=== PATIENT | female | born 1955 | race Caucasian/White ===

== ENCOUNTER 2018-09-23 19:46 | Inpatient (IN) | payer MEDICARE ==
[~2018-09-23] VITALS: Ht 149.9 cm; Wt 95.3 kg
--- NOTE | 2018-09-23 20:15 | NUR ---
PT BIB AMBULANCE FOR MEDICAL CLEARANCE. PT ON 5150 FOR DTS AND HERE FOR MEDICAL CLEARANCE. 1:1 SITTER AT BEDSIDE FOR SAFETY. SAFETY PRECAUTIONS IMPLEMENTED.
[2018-09-23] MEDS ORDERED: DULO60CA45 PO (20:17)
[2018-09-23] MEDS ORDERED: FURO-151 PO (20:17)
[2018-09-23] MEDS ORDERED: BISA10SU8 RC (20:17)
[2018-09-23] MEDS ORDERED: IPRA3AMP22 IH ×2 (20:17)
[2018-09-23] MEDS ORDERED: BACL20TA PO ×2 (20:17)
[2018-09-23] MEDS ORDERED: NA P133E RC (20:17)
[2018-09-23] MEDS ORDERED: DOCU-141 PO (20:17)
[2018-09-23] MEDS ORDERED: CLOP75TA33 PO (20:17)
[2018-09-23] MEDS ORDERED: AMLO10TA7 PO (20:17)
[2018-09-23] MEDS ORDERED: ACET-2154 PO (20:17)
[2018-09-23] MEDS ORDERED: AMIO200T6 PO (20:17)
[2018-09-23] MEDS ORDERED: SENN8.6C5 PO (20:17)
[2018-09-23] MEDS ORDERED: HYDR-4077 PO (20:17)
[2018-09-23] MEDS ORDERED: CARV6.252 PO (20:17)
[2018-09-23] MEDS ORDERED: LEVE250T2 PO (20:17)
[2018-09-23] MEDS ORDERED: MAGN400O6 PO (20:17)
[2018-09-23 20:40] LABS: *BILIRUBIN,URIN NEGATIVE (NEGATIVE); *BLOOD, URINE NEGATIVE (NEGATIVE); *COLOR,URINE YELLOW (YELLOW); *KETONES,URINE NEGATIVE (NEGATIVE); *UROBILINOGEN,URINE 0.2 E.U./dl (NORMAL); LEUKOCYTE ESTERASE ,URINE TRACE (NEGATIVE); NITRITE, URINE NEGATIVE (NEGATIVE); PH,URINE 7.5 (5.0-8.0); UGLUCOSE NEGATIVE (NEGATIVE)
[2018-09-23 20:45] LABS: *CLARITY,URINE SLIGHTLY HAZY (CLEAR)
[2018-09-23 20:46] LABS: BACTERIA,URINE FEW /HPF (NONE SEEN); SQUAMOUS EPITHELIAL CELL,UR MODERATE /HPF (NONE SEEN)
[2018-09-23] MEDS ORDERED: ALBUTEROL SULFATE 2.5 MG/3 ML NEBU NEB ONE (21:30)
[2018-09-23] MEDS ORDERED: FUROSEMIDE 20 MG/2 ML VIAL IV ONE (21:30)
[2018-09-23] MEDS ORDERED: ALBUTEROL SULFATE 2.5 MG/3 ML NEBU ONE (21:38)
[2018-09-23] MEDS ORDERED: FUROSEMIDE 40 MG/4 ML VIAL ONE (21:56)
[2018-09-23 21:57] LABS: BASOPHILS # (AUTO) 0.1 K/uL (0.0-8.0); BASOPHILS % (AUTO) 1.3 % (0.0-2.0); EOSINOPHILS # (AUTO) 0.2 K/uL (0.0-0.7); EOSINOPHILS % (AUTO) 3.6 % (0.0-7.0); HEMATOCRIT 38.4 % (31.2-41.9); HEMOGLOBIN 12.9 g/dL (10.9-14.3); LYMPHOCYTES # (AUTO) 1.1 K/uL (20.0-40.0); LYMPHOCYTES % (AUTO) 21.1 % (20.5-51.5); MEAN CORPUSCULAR HEMOGLOBIN 30.5 uug (24.7-32.8); MEAN CORPUSCULAR HGB CONC 34 g/dL (32.3-35.6); MEAN CORPUSCULAR VOLUME 90.4 fL (75.5-95.3); MONOCYTES # (AUTO) 0.6 K/uL (2.0-10.0); MONOCYTES % (AUTO) 12.1 % (0.0-11.0); NEUTROPHILS # (AUTO) 3.2 K/uL (1.8-8.9); NEUTROPHILS % (AUTO) 61.9 % (38.5-71.5); PLATELET COUNT (AUTO) 276 K/uL (179-408); RED BLOOD CELL COUNT(AUTO) 4.24 MIL/uL (3.63-4.92); WHITE BLOOD COUNT (AUTO) 5.1 K/uL (3.8-11.8)
[2018-09-23 22:00] LABS: CREATININE 1.3 mg/dL (0.6-1.3)
[2018-09-23 22:13] LABS: BILIRUBIN,DIRECT 0.1 mg/dL (0.0-0.2); BILIRUBIN,TOTAL 0.4 mg/dL (0.2-1.0)
--- NOTE | 2018-09-23 22:42 | NUR ---
EPIC PAGED FOR PANEL CALL.
[2018-09-23] MEDS ORDERED: ONDANSETRON 4 MG/2 ML VIAL IV PRN (23:15)
[2018-09-23] MEDS ORDERED: SENNOSIDES 8.6 MG PO SCH (23:15)
[2018-09-23] MEDS ORDERED: ACETAMINOPHEN 325 MG TABLET PO PRN ×2 (23:15)
[2018-09-23] MEDS ORDERED: FLEET ENEMA 133 ML BOTTLE RC PRN (23:15)
[2018-09-23] MEDS ORDERED: IPRATROPIUM BROMIDE 0.5 MG/2.5 ML NEBU NEB PRN (23:15)
[2018-09-23] MEDS ORDERED: BISACODYL 10 MG SUPP.RECT RC PRN (23:15)
[2018-09-23] MEDS ORDERED: ALBUTEROL SULFATE 2.5 MG/3 ML NEBU NEB PRN (23:15)
--- NOTE | 2018-09-23 23:16 | NUR ---
Pt. admitted to TELE , under care of Dr. LUCAS Belongs List completed
[2018-09-23 23:35] VITALS: BP 133/67
[2018-09-23] MEDS: MORPHINE SULFATE 4 MG/1 ML DISP.SYRIN IV PRN (23:38)
--- NOTE | 2018-09-23 23:50 | NUR ---
Admitted to Tele floor Dx. CHF. Received from ER via [facility] awake alert & oriented no SOB denies chest pain. small equipment operator applied- shows Sinus rhythm with Bundle Branch block. Admission assessment initiated, left forearm shallow cut wound noted (see picture in chart). Cleansed with soap & water, then band aid applied. 1:1 sitter provided for patient's safety.
--- NOTE | 2018-09-24 | NUR ---
Patient c/o neck pain, Morphine 2mg IV push adm.
[2018-09-24] MEDS: LEVETIRACETAM 250 MG TABLET PO SCH ×3 (00:25→22:20)
[2018-09-24] MEDS: LORAZEPAM 2 MG/1 ML VIAL IV PRN (01:19)
--- NOTE | 2018-09-24 01:30 | NUR ---
Still awake anxious c/o insomnia. Skin picking noted. Ativan 1mg IVP adm. & monitored.
[2018-09-24 04:00] VITALS: BP 140/63
--- NOTE | 2018-09-24 04:00 | NUR ---
Ativan not effective, patient remains up. Patient stated she has active Shingles. Re-assessed patient, no unusual rash noted. Spoke to ER MD Dr. Ryan, re-assured that patient has no shingles.
[2018-09-24] MEDS: PANTOPRAZOLE SODIUM 40 MG TABLET.DR PO SCH (06:38)
[2018-09-24 07:23] LABS: BASOPHILS # (AUTO) 0.1 K/uL (0.0-8.0); BASOPHILS % (AUTO) 1.1 % (0.0-2.0); EOSINOPHILS # (AUTO) 0.2 K/uL (0.0-0.7); EOSINOPHILS % (AUTO) 2.9 % (0.0-7.0); HEMATOCRIT 36.7 % (31.2-41.9); HEMOGLOBIN 12.4 g/dL (10.9-14.3); LYMPHOCYTES % (AUTO) 15.6 % (20.5-51.5); MEAN CORPUSCULAR HEMOGLOBIN 30.7 uug (24.7-32.8); MEAN CORPUSCULAR HGB CONC 34 g/dL (32.3-35.6); MEAN CORPUSCULAR VOLUME 90.4 fL (75.5-95.3); MONOCYTES # (AUTO) 0.8 K/uL (2.0-10.0); MONOCYTES % (AUTO) 11.9 % (0.0-11.0); NEUTROPHILS # (AUTO) 4.6 K/uL (1.8-8.9); NEUTROPHILS % (AUTO) 68.5 % (38.5-71.5); PLATELET COUNT (AUTO) 268 K/uL (179-408); RED BLOOD CELL COUNT(AUTO) 4.06 MIL/uL (3.63-4.92); WHITE BLOOD COUNT (AUTO) 6.6 K/uL (3.8-11.8)
--- NOTE | 2018-09-24 07:23 | NUR ---
Received pt AAOX4. vitals stable no c/of pain. 1:1 sitter at bedside.
[2018-09-24 07:42] LABS: BILIRUBIN,TOTAL 0.4 mg/dL (0.2-1.0); CREATININE 1.1 mg/dL (0.6-1.3); PHOSPHOROUS 4.3 mg/dL (2.5-4.9); POTASSIUM 3.8 mmol/L (3.5-5.1); TOTAL PROTEIN, SERUM 7.6 g/dL (6.4-8.2)
[2018-09-24 08:00] VITALS: BP 118/84
[2018-09-24] MEDS: DULOXETINE 60 MG CAPSULE.DR PO SCH (08:13)
[2018-09-24] MEDS: DOCUSATE SODIUM 100 MG CAPSULE PO SCH (08:13)
[2018-09-24] MEDS: CARVEDILOL 6.25 MG TABLET PO SCH ×2 (08:14→17:16)
[2018-09-24] MEDS: CLOPIDOGREL 75 MG TABLET PO SCH (08:14)
[2018-09-24] MEDS: AMLODIPINE 10 MG TABLET PO SCH (08:14)
[2018-09-24] MEDS: AMIODARONE HCL 200 MG TABLET PO SCH (08:15)
[2018-09-24] MEDS: BACLOFEN 20 MG TABLET PO SCH ×2 (08:15→20:44)
[2018-09-24 08:21] LABS: THYROID STIMULATING HORMONE 10.333 mIU/mL (0.358-3.740)
[2018-09-24] MEDS ORDERED: FUROSEMIDE 20 MG/2 ML VIAL IV SCH (09:00)
[2018-09-24] MEDS ORDERED: MAGNESIUM HYDROXIDE 30 ML LIQUID UDC PO PRN (09:00)
[2018-09-24 12:00] VITALS: BP 143/71
--- NOTE | 2018-09-24 12:43 | NUR ---
WOUND CARE CONSULT: PT PRESENTS WITH BRUISING, DRY ABRASION TO LEFT ARM, RASH TO RT BREASTFOLD, GROIN AND PERINEAL AREAS, PRESENT ON ADMISSION. PT ABLE TO ASSIST WITH TURNING AND REPOSITIONING IN BED. SITTER AT BEDSIDE. ALL SKIN CARE AND SKIN PROTECTION RECOMMENDATIONS DISCUSSED WITH NURSING STAFF. WILL SEE PRN. VALLES IN AGREEMENT WITH PLAN OF CARE. Addendum: 09/24/18 at 1245 by ANN GALEANA RN Amended: Links added.
[2018-09-24] MEDS ORDERED: Z GUARD REMEDY PASTE 57 GM TUBE TOP PRN (12:45)
[2018-09-24] MEDS: DULOXETINE 30 MG CAPSULE.DR PO SCH (14:02)
[2018-09-24 16:00] VITALS: BP 142/62
[2018-09-24] MEDS: CLOTRIMAZOLE 1% CREAM 30 GM TUBE TOP SCH (17:38)
--- NOTE | 2018-09-24 18:51 | NUR ---
A request for medical records faxed to [facility] to fax .
--- NOTE | 2018-09-24 18:54 | NUR ---
Left patient in bed resting comfortably, no c/of any discomfort. AAOX4. vital stable. 1:1 sitter at bedside.
--- NOTE | 2018-09-24 19:20 | NUR ---
RECEIVED PT AWAKE, ALERT AND ORIENTEDX3. PT SHOWS NO SIGNS OF ACUTE DISTRESS. IV INTACT. SAFETY AND COMFORT PROVIDED. WILL CONTINUE TO MONITOR.
[2018-09-24 19:41] VITALS: BP 140/68
[2018-09-24] MEDS: MUPIROCIN 2% OINT 22 GM TUBE NS SCH ×2 (20:45→20:52)
[2018-09-24] MEDS: SENNOSIDES 1 TABLET PO SCH (20:46)
[2018-09-24] MEDS: Z GUARD REMEDY PASTE 57 GM TUBE TOP SCH (20:47)
[2018-09-24] MEDS ORDERED: MUPIROCIN 2% OINT 22 GM TUBE NS SCH (21:00)
[2018-09-25] MEDS: LORAZEPAM 2 MG/1 ML VIAL IV PRN (00:45)
--- NOTE | 2018-09-25 01:00 | NUR ---
PT GIVEN ATIVAN. PT RESTLESS. PT TOLERATED THE MEDICATION. PT VITAL SIGNS STABLE. WILL CONTINUE TO MONITOR. SITTER AT BEDSIDE FOR SAFETY.
[2018-09-25] MEDS: PANTOPRAZOLE SODIUM 40 MG TABLET.DR PO SCH (06:00)
--- NOTE | 2018-09-25 06:24 | NUR ---
PT SLEPT 3 HOURS. PT SHOWS NO SIGNS OF ACUTE DISTRESS. IV INTACT. SAFETY AND COMFORT PROVIDED. SITTER AT BEDSIDE FOR SAFETY.ALL NEEDS ARE MET.PRESCRIBED MEDICATION GIVEN AND PT TOLERATED IT WELL. PT REFUSED HER BACTROBAN OINTMENT AND SENOKOT MEDICATION. CHARGE NURSE AWARE. WILL ENDORSE ACCORDINGLY TO INCOMING NURSE FOR CONTINUITY OF CARE.
[2018-09-25 06:40] LABS: BASOPHILS # (AUTO) 0.1 K/uL (0.0-8.0); EOSINOPHILS # (AUTO) 0.1 K/uL (0.0-0.7); EOSINOPHILS % (AUTO) 2.2 % (0.0-7.0); HEMATOCRIT 37.3 % (31.2-41.9); HEMOGLOBIN 12.5 g/dL (10.9-14.3); LYMPHOCYTES # (AUTO) 1.3 K/uL (20.0-40.0); LYMPHOCYTES % (AUTO) 22.7 % (20.5-51.5); MEAN CORPUSCULAR HEMOGLOBIN 30.2 uug (24.7-32.8); MEAN CORPUSCULAR HGB CONC 34 g/dL (32.3-35.6); MEAN CORPUSCULAR VOLUME 89.7 fL (75.5-95.3); MONOCYTES # (AUTO) 0.7 K/uL (2.0-10.0); MONOCYTES % (AUTO) 11.5 % (0.0-11.0); NEUTROPHILS # (AUTO) 3.6 K/uL (1.8-8.9); NEUTROPHILS % (AUTO) 62.6 % (38.5-71.5); PLATELET COUNT (AUTO) 294 K/uL (179-408); RED BLOOD CELL COUNT(AUTO) 4.16 MIL/uL (3.63-4.92); WHITE BLOOD COUNT (AUTO) 5.8 K/uL (3.8-11.8)
[2018-09-25 07:08] LABS: CREATININE 1.1 mg/dL (0.6-1.3); PHOSPHOROUS 3.7 mg/dL (2.5-4.9); POTASSIUM 3.9 mmol/L (3.5-5.1)
--- NOTE | 2018-09-25 07:30 | NUR ---
on bed, resting . denies any pain , no distress noted
[2018-09-25 08:00] VITALS: BP 144/91
[2018-09-25] MEDS: Z GUARD REMEDY PASTE 57 GM TUBE TOP SCH ×2 (08:58→20:25)
[2018-09-25] MEDS: CLOTRIMAZOLE 1% CREAM 30 GM TUBE TOP SCH ×2 (08:58→17:22)
[2018-09-25] MEDS: ASPIRIN EC 81 MG TABLET.DR PO SCH (08:59)
[2018-09-25] MEDS: DULOXETINE 60 MG CAPSULE.DR PO SCH (08:59)
[2018-09-25] MEDS: CLOPIDOGREL 75 MG TABLET PO SCH (08:59)
[2018-09-25] MEDS: DOCUSATE SODIUM 100 MG CAPSULE PO SCH (08:59)
[2018-09-25] MEDS: MUPIROCIN 2% OINT 22 GM TUBE NS SCH ×4 (09:00→20:24)
--- NOTE | 2018-09-25 09:00 | NUR ---
refused bactroban , will try again later
[2018-09-25] MEDS: BACLOFEN 20 MG TABLET PO SCH ×2 (09:03→20:24)
[2018-09-25] MEDS: FUROSEMIDE 40 MG TABLET PO SCH (09:06)
[2018-09-25] MEDS: AMIODARONE HCL 200 MG TABLET PO SCH (09:07)
[2018-09-25] MEDS: AMLODIPINE 10 MG TABLET PO SCH (09:08)
[2018-09-25] MEDS: CARVEDILOL 6.25 MG TABLET PO SCH ×2 (09:08→17:21)
[2018-09-25] MEDS: LEVETIRACETAM 250 MG TABLET PO SCH ×2 (11:53→22:36)
--- NOTE | 2018-09-25 11:56 | NUR ---
rediscussed use of bactroban, able to convince to take med.
[2018-09-25 12:00] VITALS: BP 154/70
--- NOTE | 2018-09-25 12:30 | NUR ---
up chair eating lunch , tolerated well. cooperative with meal times , good appetite
[2018-09-25] MEDS: DULOXETINE 30 MG CAPSULE.DR PO SCH (13:21)
--- NOTE | 2018-09-25 13:28 | NUR ---
back to bed, sleepy. taking meds well, denies plan on hurting self
[2018-09-25 16:00] VITALS: BP 147/73
--- NOTE | 2018-09-25 19:20 | NUR ---
RECEIVED PATIENT SITTING IN BED. AAOX2. IN NO ACUTE DISTRESS. DENIES ANY PAIN OR SOB. IV SIT JADA RIGHT HAND INTACT AND PATENT. ISOLATION PRECAUTION OBSERVED. DENIES ANY SI. 1:1 SITTER ON SITE. CONTINUE TO MONITOR.
[2018-09-25 20:06] VITALS: BP 146/64
[2018-09-25] MEDS: SENNOSIDES 1 TABLET PO SCH (20:24)
--- NOTE | 2018-09-26 01:55 | NUR ---
NOTED IV SITE ON RIGHT HAND LEAKING. DISCONTINUED SITE. STARTED NEW IV LINE ON LEFT UPPER ARM #22 GAUGE.
[2018-09-26] MEDS: MORPHINE SULFATE 4 MG/1 ML DISP.SYRIN IV PRN (01:56)
[2018-09-26 04:00] VITALS: BP 142/71
[2018-09-26] MEDS: PANTOPRAZOLE SODIUM 40 MG TABLET.DR PO SCH (06:00)
--- NOTE | 2018-09-26 06:04 | NUR ---
AAOX2. IN NO ACUTE DISTRESS. MORPHINE 2MG IV GIVEN FOR COMPLAIN OF NECK PAIN AND EFFECTIVE. NOTED WITH AUDIBLE BREATH SOUND. OFFERED BREATHING TREATMENT BUT PATIENT REFUSED. DENIES ANY SOB. IV SITE ON LEFT UPPER ARM INTACT AND PATENT. ISOLATION PRECAUTION OBSERVED. DENIES ANY SI. 1:1 SITTER ON SITE. SAFETY MEASURE MAINTAINED.
--- NOTE | 2018-09-26 07:30 | NUR ---
recieved patient on bed, sleeping comfortably. no respiratory distress noted.
[2018-09-26] MEDS ORDERED: PANT40TA2 PO (09:15)
[2018-09-26] MEDS ORDERED: ASPI-618 PO (09:15)
[2018-09-26] MEDS ORDERED: MUPI22OI2 NS (09:15)
[2018-09-26] MEDS ORDERED: DULO30CA2 PO (09:15)
[2018-09-26] MEDS ORDERED: FURO40TA5 PO (09:15)
[2018-09-26] MEDS ORDERED: CLOT30CR24 TOP (09:15)
[2018-09-26] MEDS: CLOTRIMAZOLE 1% CREAM 30 GM TUBE TOP SCH ×2 (09:25→16:41)
[2018-09-26] MEDS: AMIODARONE HCL 200 MG TABLET PO SCH (09:26)
[2018-09-26] MEDS: DULOXETINE 60 MG CAPSULE.DR PO SCH (09:26)
[2018-09-26] MEDS: FUROSEMIDE 40 MG TABLET PO SCH (09:26)
[2018-09-26] MEDS: DOCUSATE SODIUM 100 MG CAPSULE PO SCH (09:26)
[2018-09-26] MEDS: BACLOFEN 20 MG TABLET PO SCH (09:26)
[2018-09-26] MEDS: ASPIRIN EC 81 MG TABLET.DR PO SCH (09:27)
[2018-09-26] MEDS: CLOPIDOGREL 75 MG TABLET PO SCH (09:27)
[2018-09-26] MEDS: AMLODIPINE 10 MG TABLET PO SCH (09:27)
[2018-09-26] MEDS: CARVEDILOL 6.25 MG TABLET PO SCH (09:28)
[2018-09-26] MEDS: MUPIROCIN 2% OINT 22 GM TUBE NS SCH (09:29)
[2018-09-26] MEDS: Z GUARD REMEDY PASTE 57 GM TUBE TOP SCH (09:30)
[2018-09-26] MEDS: LORAZEPAM 2 MG/1 ML VIAL IV PRN (10:29)
--- NOTE | 2018-09-26 11:26 | NUR ---
patient complaint of sob, chest discomfort, wanting diuretics. Bethany Naranjo np aware, no new order. will give breathing treatment prn and monitor patient
[2018-09-26] MEDS: LEVETIRACETAM 250 MG TABLET PO SCH (11:53)
[2018-09-26 12:24] VITALS: BP 114/55
[2018-09-26] MEDS: DULOXETINE 30 MG CAPSULE.DR PO SCH (13:27)
[2018-09-26] MEDS ORDERED: CLONAZEPAM 0.5 MG TABLET PO SCH (14:30)
== END 2018-09-26 16:12 | DRG 291 ==
LOC: ER 19:48 → TELE3 23:06 → MEDSURG3 09-24 15:35
PROVIDERS: ADMIT Internal Medicine; ATTEND Registered Nurse
DX: I13.0 Hypertensive heart and chronic kidney disease with heart failure and stage 1 through stage 4 chronic kidney disease, or unspecified chronic kidney disease (principal); I50.43 Acute on chronic combined systolic (congestive) and diastolic (congestive) heart failure; J96.00 Acute respiratory failure, unspecified whether with hypoxia or hypercapnia; F33.2 Major depressive disorder, recurrent severe without psychotic features; Z68.41 Body mass index [BMI] 40.0-44.9, adult; G93.40 Encephalopathy, unspecified; J98.11 Atelectasis; I25.2 Old myocardial infarction; I25.10 Atherosclerotic heart disease of native coronary artery without angina pectoris; Z95.5 Presence of coronary angioplasty implant and graft; I44.7 Left bundle-branch block, unspecified; F41.9 Anxiety disorder, unspecified; G40.909 Epilepsy, unspecified, not intractable, without status epilepticus; E66.01 Morbid (severe) obesity due to excess calories; Z71.3 Dietary counseling and surveillance; N18.9 Chronic kidney disease, unspecified; I70.0 Atherosclerosis of aorta; I48.0 Paroxysmal atrial fibrillation; S51.812D Laceration without foreign body of left forearm, subsequent encounter; S51.811D Laceration without foreign body of right forearm, subsequent encounter; X78.8XXD Intentional self-harm by other sharp object, subsequent encounter; Z22.322 Carrier or suspected carrier of Methicillin resistant Staphylococcus aureus; Z79.899 Other long term (current) drug therapy; L27.0 Generalized skin eruption due to drugs and medicaments taken internally; T37.0X5A Adverse effect of sulfonamides, initial encounter; Y92.89 Other specified places as the place of occurrence of the external cause; I73.9 Peripheral vascular disease, unspecified; G89.29 Other chronic pain; Z98.1 Arthrodesis status
CPT/HCPCS: 36415; 70030-TC; 71045; 83735; 84100; 84443; 85025; 85730; 87086; 93005; 93307; 94664; 97116; 97530; A4663; G0378; J1940; J2060; J2270; J3590

== ENCOUNTER 2018-09-26 16:11 | Inpatient (IN) | payer MEDICARE ==
[~2018-09-26] VITALS: Ht 149.9 cm; Wt 92.1 kg
[~2018-09-26 16:11] MED LIST: ACET-2154 PO; AMIO200T6 PO; AMLO10TA7 PO; ASPI-618 PO; BACL20TA PO; BISA10SU95 RC; CARV6.252 PO; CLOP75TA33 PO; CLOT30CR24 TOP; DOCU-141 PO; DULO30CA2 PO; DULO60CA45 PO; FURO-151 PO; FURO40TA5 PO; HYDR-4077 PO; IPRA3AMP22 IH; LEVE250T2 PO; MAGN400O6 PO; MUPI22OI2 NS; NA P133E RC; PANT40TA2 PO; SENN8.6C5 PO
[2018-09-26] MEDS ORDERED: MAGNESIUM HYDROXIDE 30 ML LIQUID UDC PO PRN (16:30)
[2018-09-26] MEDS ORDERED: MAG HYDROX/AL HYDROX/SIMETH 30 ML LIQUID UDC PO PRN (16:30)
[2018-09-26] MEDS ORDERED: FLEET ENEMA 133 ML BOTTLE RC PRN (17:45)
[2018-09-26] MEDS ORDERED: BISACODYL 10 MG SUPP.RECT RC PRN (17:45)
[2018-09-26] MEDS ORDERED: ACETAMINOPHEN 325 MG TABLET PO SCH (17:45)
[2018-09-26] MEDS ORDERED: MAGNESIUM HYDROXIDE 30 ML LIQUID UDC PO SCH (17:45)
--- NOTE | 2018-09-26 19:30 | NUR ---
RECEIVED PATIENT IN BED WITH SITTER AT BEDSIDE. PATIENT IS ALERT AND ORIENTED. NO SIGNS OF ACUTE DISTRESS NOTED. NO COMPLAINTS OF SOB OR PAIN. HEPLOCK ON THE LEFT FOREARM IS INTACT AND PATENT. SAFETY MEASURES INITIATED. BED IS LOW AND LOCKED. WILL CONTINUE TO MONITOR.
[2018-09-26 20:00] VITALS: BP 144/57
[2018-09-26] MEDS: BACLOFEN 20 MG TABLET PO SCH (20:38)
[2018-09-26] MEDS: MUPIROCIN 2% OINT 22 GM TUBE NS SCH (20:38)
[2018-09-26] MEDS: LORAZEPAM 0.5 MG TABLET PO PRN (20:38)
[2018-09-26] MEDS: SENNOSIDES 1 TABLET PO SCH (20:38)
[2018-09-26] MEDS ORDERED: SENNOSIDES 8.6 MG PO SCH (21:00)
[2018-09-26] MEDS: IPRATROPIUM BROMIDE 0.5 MG/2.5 ML NEBU NEB PRN (21:13)
[2018-09-26] MEDS: ALBUTEROL SULFATE 1.25 MG/3 ML NEBU NEB PRN (21:14)
[2018-09-26] MEDS: TEMAZEPAM 7.5 MG CAPSULE PO PRN (22:13)
[2018-09-27] MEDS: ALBUTEROL SULFATE 1.25 MG/3 ML NEBU NEB PRN ×2 (01:09→07:14)
[2018-09-27] MEDS: IPRATROPIUM BROMIDE 0.5 MG/2.5 ML NEBU NEB PRN ×2 (01:09→07:14)
[2018-09-27] MEDS: LORAZEPAM 0.5 MG TABLET PO PRN ×3 (03:20→23:56)
[2018-09-27 03:28] VITALS: BP 137/74
[2018-09-27] MEDS: PANTOPRAZOLE SODIUM 40 MG TABLET.DR PO SCH (06:19)
--- NOTE | 2018-09-27 06:49 | NUR ---
PATIENT HAD LITTLE SLEEP. NO SIGNS OF ACUTE DISTRESS NOTED. SITTER IS AT BEDSIDE. COMPLAINED OF NECK PAIN. NO COMPLAINTS OF SOB. PATIENT WAS ABLE TO AMBULATE TO RESTROOM WITH ASSIST. HEPLOCK ON THE LEFT FA IS INTACT AND PATENT. SAFETY MEASURES GIVEN.
[2018-09-27 07:30] VITALS: BP 133/82
[2018-09-27] MEDS: BACLOFEN 20 MG TABLET PO SCH ×2 (08:05→21:11)
[2018-09-27] MEDS: AMLODIPINE 10 MG TABLET PO SCH (08:05)
[2018-09-27] MEDS: CARVEDILOL 6.25 MG TABLET PO SCH ×2 (08:05→17:10)
[2018-09-27] MEDS: DOCUSATE SODIUM 100 MG CAPSULE PO SCH (08:05)
[2018-09-27] MEDS: FUROSEMIDE 40 MG TABLET PO SCH (08:05)
[2018-09-27] MEDS: CLOPIDOGREL 75 MG TABLET PO SCH (08:05)
[2018-09-27] MEDS: AMIODARONE HCL 200 MG TABLET PO SCH (08:06)
[2018-09-27] MEDS: ASPIRIN EC 81 MG TABLET.DR PO SCH (08:06)
[2018-09-27] MEDS: LEVETIRACETAM 250 MG TABLET PO SCH ×2 (08:06→17:10)
[2018-09-27] MEDS: CLOTRIMAZOLE 1% CREAM 30 GM TUBE TOP SCH ×2 (08:18→17:11)
[2018-09-27] MEDS: MUPIROCIN 2% OINT 22 GM TUBE NS SCH ×2 (08:18→21:12)
[2018-09-27] MEDS ORDERED: DULOXETINE 60 MG CAPSULE.DR PO SCH (09:00)
[2018-09-27] MEDS: ACETAMINOPHEN 325 MG TABLET PO PRN (10:08)
[2018-09-27] MEDS: risperiDONE 0.5 MG TABLET PO SCH ×2 (12:53→21:12)
[2018-09-27] MEDS: CLONAZEPAM 0.5 MG TABLET PO SCH ×2 (12:53→17:09)
[2018-09-27] MEDS: DULOXETINE 60 MG CAPSULE.DR PO SCH (12:53)
[2018-09-27] MEDS ORDERED: DULOXETINE 30 MG CAPSULE.DR PO SCH (13:00)
[2018-09-27 15:54] VITALS: BP 160/59
--- NOTE | 2018-09-27 16:36 | NUR ---
Firearms Report: delinquency prevention social worker completed and submitted a [employer] firearms report for a 5150 DTS certification.
--- NOTE | 2018-09-27 18:45 | NUR ---
Pt observed resting in bed with 1:1 sitter at the bedside. no signs of respiratory distress at this time. pt contracts for safety inside and outside of hospital. pt denies SI at this time.
[2018-09-27 20:00] VITALS: BP 157/84
--- NOTE | 2018-09-27 20:00 | NUR ---
RECEIVED PATIENT AWAKE IN BED WITH SITTER AT BEDSIDE. PATIENT IS A/O X3. VSS. DENIES PAIN. NO RESP. DISTRESS NOTED. ALL NEEDS ATTENDED. WILL CONTINUE TO MONITOR AND ASSESS.
[2018-09-27] MEDS: SENNOSIDES 1 TABLET PO SCH (21:11)
--- NOTE | 2018-09-28 | NUR ---
PATIENT AWAKE IN BED. C/O ANXIETY. PATIENT GIVEN ATIVAN 0.5MG PO PRN ORDERED PER MD. SITTER AT BEDSIDE FOR SAFETY. PROVIDED SAFE AND THERAPEUTIC ENVIRONMENT. WILL CONTINUE TO MONITOR AND ASSESS.
[2018-09-28] MEDS ORDERED: Z GUARD REMEDY PASTE 57 GM TUBE TOP PRN (00:30)
[2018-09-28] MEDS: TEMAZEPAM 7.5 MG CAPSULE PO PRN (01:00)
--- NOTE | 2018-09-28 01:00 | NUR ---
PATIENT AWAKE. REQUESTING SLEEPING PILL. PATIENT GIVEN RESTORIL 7.5MG PO PRN FOR SLEEP. WILL CONTINUE TO MONITOR. SITTER AT BEDSIDE.
[2018-09-28] MEDS: PANTOPRAZOLE SODIUM 40 MG TABLET.DR PO SCH (06:16)
--- NOTE | 2018-09-28 06:18 | NUR ---
PATIENT AWAKE IN BED. SLEPT 45 MINUTES TOTAL. SITTER AT BEDSIDE. ALL NEEDS ATTENDED.
[2018-09-28] MEDS: CLONAZEPAM 0.5 MG TABLET PO SCH ×3 (10:40→17:57)
[2018-09-28] MEDS: LEVETIRACETAM 250 MG TABLET PO SCH ×2 (10:40→17:57)
[2018-09-28] MEDS: DOCUSATE SODIUM 100 MG CAPSULE PO SCH (10:40)
[2018-09-28] MEDS: BACLOFEN 20 MG TABLET PO SCH ×2 (10:40→20:38)
[2018-09-28] MEDS: ASPIRIN EC 81 MG TABLET.DR PO SCH (10:40)
[2018-09-28] MEDS: FUROSEMIDE 40 MG TABLET PO SCH (10:41)
[2018-09-28] MEDS: risperiDONE 0.5 MG TABLET PO SCH ×2 (10:41→20:38)
[2018-09-28] MEDS: AMIODARONE HCL 200 MG TABLET PO SCH (10:42)
[2018-09-28] MEDS: ACETAMINOPHEN 325 MG TABLET PO PRN ×2 (10:42→22:47)
[2018-09-28] MEDS: CARVEDILOL 6.25 MG TABLET PO SCH ×2 (10:42→17:58)
[2018-09-28] MEDS: Z GUARD REMEDY PASTE 57 GM TUBE TOP SCH ×2 (10:55→20:41)
[2018-09-28] MEDS: CLOTRIMAZOLE 1% CREAM 30 GM TUBE TOP SCH ×2 (10:56→17:00)
[2018-09-28] MEDS: LORAZEPAM 0.5 MG TABLET PO PRN ×2 (10:59→22:47)
[2018-09-28 11:00] VITALS: BP 180/90
[2018-09-28] MEDS: AMLODIPINE 10 MG TABLET PO SCH (11:14)
[2018-09-28] MEDS: MUPIROCIN 2% OINT 22 GM TUBE NS SCH ×2 (11:15→20:38)
[2018-09-28] MEDS: CLOPIDOGREL 75 MG TABLET PO SCH (11:44)
[2018-09-28] MEDS: DULOXETINE 60 MG CAPSULE.DR PO SCH (12:38)
[2018-09-28 15:00] VITALS: BP 116/78
--- NOTE | 2018-09-28 17:00 | NUR ---
Pt received this morning resting in bed. Pt assessed, NAD, no SOB, denies SI/AH/VH, Pt able to contract for safety at this time. Pt confused as to why they are being held on a 14 day hold. Pt is restless and describes being anxious. PRN Ativan administered per MD orders. Effective. Bed in locked and lowest position with side rails up x2. 1:1 sitter remains at bedside. All needs promptly attended to throughout this shift. Will continue to monitor and endorse.
--- NOTE | 2018-09-28 19:20 | NUR ---
RECEIVED PT AWAKE, ALERT, ORIENTEDX2. SITTER AT BEDSIDE. PT SHOWS NO SIGNS OF ACUTE DISTRESS. WILL CONTINUE TO MONITOR.
[2018-09-28 20:00] VITALS: BP 138/67
[2018-09-28] MEDS: SENNOSIDES 1 TABLET PO SCH (20:38)
[2018-09-29] MEDS: TEMAZEPAM 7.5 MG CAPSULE PO PRN (01:20)
[2018-09-29 04:00] VITALS: BP 118/81
[2018-09-29] MEDS: PANTOPRAZOLE SODIUM 40 MG TABLET.DR PO SCH (06:10)
--- NOTE | 2018-09-29 06:40 | NUR ---
PT SLEPT 4 HOURS. SITTER AT BEDSIDE FOR SAFETY. PRESCRIBED MEDICATION GIVEN AND PT TOLERATED IT WELL.PT SHOWS NO SIGNS OF ACUTE DISTRESS. SAFETY AND COMFORT PROVIDED. ALL NEEDS ARE MET.PT GIVEN ATIVAN FOR RESTLESSNESS. PT TOLERATED IT WELL. WILL ENDORSE ACCORDINGLY TO INCOMING NURSE FOR CONTINUITY OF CARE.
--- NOTE | 2018-09-29 07:20 | NUR ---
PATIENT ON 1:1 SITTER AT BEDSIDE FOR SAFETY. PRESCRIBED MEDICATION GIVEN AND PATIENT TOLERATED IT WELL.PATIENT SHOWS NO SIGNS OF ACUTE DISTRESS. SAFETY AND COMFORT PROVIDED. NO S/S OF SI/ HI OR AH/VH NOTED AT THIS TIME. WILL CONTINUE PLAN OF CARE.
[2018-09-29 08:00] VITALS: BP 109/62
[2018-09-29] MEDS: AMLODIPINE 10 MG TABLET PO SCH (09:00)
[2018-09-29] MEDS: AMIODARONE HCL 200 MG TABLET PO SCH (09:00)
[2018-09-29] MEDS: CARVEDILOL 6.25 MG TABLET PO SCH ×2 (09:00→16:55)
[2018-09-29] MEDS: risperiDONE 0.5 MG TABLET PO SCH ×2 (09:24→20:01)
[2018-09-29] MEDS: Z GUARD REMEDY PASTE 57 GM TUBE TOP SCH ×2 (09:24→20:05)
[2018-09-29] MEDS: DOCUSATE SODIUM 100 MG CAPSULE PO SCH (09:24)
[2018-09-29] MEDS: CLONAZEPAM 0.5 MG TABLET PO SCH ×3 (09:24→16:55)
[2018-09-29] MEDS: ASPIRIN EC 81 MG TABLET.DR PO SCH (09:24)
[2018-09-29] MEDS: BACLOFEN 20 MG TABLET PO SCH ×2 (09:24→20:01)
[2018-09-29] MEDS: LEVETIRACETAM 250 MG TABLET PO SCH ×2 (09:24→16:55)
[2018-09-29] MEDS: FUROSEMIDE 40 MG TABLET PO SCH (09:24)
[2018-09-29] MEDS: MUPIROCIN 2% OINT 22 GM TUBE NS SCH (09:24)
[2018-09-29] MEDS: CLOPIDOGREL 75 MG TABLET PO SCH (09:24)
[2018-09-29] MEDS: CLOTRIMAZOLE 1% CREAM 30 GM TUBE TOP SCH ×2 (09:24→16:55)
[2018-09-29 12:00] VITALS: BP 112/61
[2018-09-29] MEDS: DULOXETINE 60 MG CAPSULE.DR PO SCH (13:39)
--- NOTE | 2018-09-29 15:07 | NUR ---
Initial Discharge Note: The patient currently resides at [facility] [[address], [place] [address]; ]. Per patient, she would like to return home [[address], [place] [address]] with her grandson, Joselito upon discharge. Per Joselito, he expressed that the patient may return home as he can provide minor assistance to pt. IVON spoke with rn mds coordinator, Henny from [facility] who stated that the pt. does not have [facility] so there�s no bed hold and the pt.�s grandson refused to pay for a bed hold. However, the facility is willing to reassess the patient for re-admission. IVON Pereira and other SW will continue to collaborate with interdisciplinary team to ensure safe and proper discharge planning.
--- NOTE | 2018-09-29 18:37 | NUR ---
PATIENT CONTINUE ON 1:1 SITTER AT BEDSIDE FOR SAFETY. PRESCRIBED MEDICATION GIVEN AND PATIENT TOLERATED IT WELL.PATIENT SHOWS NO SIGNS OF ACUTE DISTRESS. SAFETY AND COMFORT PROVIDED. DENIES S/S OF SI/ HI OR AH/VH NOTED AT THIS TIME. WILL CONTINUE PLAN OF CARE. CONTINUE OF CARE WITH SMOKING PIPE LINER NURSE.
[2018-09-29] MEDS: SENNOSIDES 1 TABLET PO SCH (20:01)
[2018-09-29 20:06] VITALS: BP 139/83
[2018-09-29] MEDS: LORAZEPAM 0.5 MG TABLET PO PRN (23:26)
[2018-09-29] MEDS: ACETAMINOPHEN 325 MG TABLET PO PRN (23:26)
[2018-09-30] MEDS: PANTOPRAZOLE SODIUM 40 MG TABLET.DR PO SCH (06:19)
--- NOTE | 2018-09-30 06:33 | NUR ---
PT SLEPT 7.30 HOURS SITTER AT BEDSIDE FOR SAFETY. PRESCRIBED MEDICATION GIVEN AND PT TOLERATED IT WELL. PT GIVEN ATIVAN FOR RESTLESSNESS AND TYLENOL FOR PAIN. PT PLEASANT WHEN APPROACHED. PT TOLERATED IT WELL. SAFETY AND COMFORT PROVIDED. WILL ENDORSE ACCORDINGLY TO INCOMING NURSE FOR CONTINUITY OF CARE.
--- NOTE | 2018-09-30 07:10 | NUR ---
PATIENT IN BED AOX1 WITH 1:1 SITTER PRESENT AT BED. PATIENT GROGGY AT THIS TIME BUT ABLE TO FOLLOW DIRECTION WITH TAKING MEDICATION. DENIES SI/AH/VH. SAFETY PRECAUTIONS IN PLACE. WILL CONTINUE TO MONITOR.
[2018-09-30] MEDS: LEVETIRACETAM 250 MG TABLET PO SCH ×2 (08:43→17:27)
[2018-09-30] MEDS: BACLOFEN 20 MG TABLET PO SCH ×2 (08:43→20:02)
[2018-09-30] MEDS: AMIODARONE HCL 200 MG TABLET PO SCH (08:43)
[2018-09-30] MEDS: AMLODIPINE 10 MG TABLET PO SCH (08:43)
[2018-09-30] MEDS: CARVEDILOL 6.25 MG TABLET PO SCH ×2 (08:44→17:27)
[2018-09-30] MEDS: CLOPIDOGREL 75 MG TABLET PO SCH (08:44)
[2018-09-30] MEDS: FUROSEMIDE 40 MG TABLET PO SCH (08:44)
[2018-09-30] MEDS: ASPIRIN EC 81 MG TABLET.DR PO SCH (08:44)
[2018-09-30] MEDS: risperiDONE 0.5 MG TABLET PO SCH (08:45)
[2018-09-30] MEDS: CLONAZEPAM 0.5 MG TABLET PO SCH (08:46)
[2018-09-30] MEDS: CLOTRIMAZOLE 1% CREAM 30 GM TUBE TOP SCH ×2 (08:53→17:34)
[2018-09-30] MEDS: DOCUSATE SODIUM 100 MG CAPSULE PO SCH (08:53)
[2018-09-30] MEDS: Z GUARD REMEDY PASTE 57 GM TUBE TOP SCH ×2 (08:54→20:03)
[2018-09-30] MEDS ORDERED: risperiDONE 0.25 MG TABLET PO SCH (13:00)
[2018-09-30] MEDS ORDERED: risperiDONE 0.5 MG TABLET PO SCH (13:00)
--- NOTE | 2018-09-30 14:30 | NUR ---
SPOKE TO DR. MICHEL Layton REGARDING PATIENT BEING GROGGY SINCE LAST NIGHT PER REPORT. PATIENT DESATURATING WITH ACTIVITY DOWN TO 88% ON RA. MD ORDERED KLONOPIN 0.25MG TO BE DISCONTINUED AND RISPERDAL 0.25,G PO TO BE CHANGED TO QHS. THE 1300 DOSE OF KLONOPIN AND RISPERDAL NOT GIVEN.
[2018-09-30] MEDS: DULOXETINE 60 MG CAPSULE.DR PO SCH (14:32)
[2018-09-30] MEDS: ACETAMINOPHEN 325 MG TABLET PO PRN ×2 (17:27→20:03)
[2018-09-30 17:30] VITALS: BP 151/80
--- NOTE | 2018-09-30 18:00 | NUR ---
PATIENT AOX1 THROUGHOUT THE SHIFT IN BED WITH INTERMITTENT SLEEPING. AGITATED AND ANXIOUS AT TIMES. PATIENT DESATURATES UPON ACTIVITY LOW 88%. AT REST PATIENT SATURATES 93-97% ON ROOM AIR. COMPLIANT WITH ALL MEDICATIONS. 1:1 SITTER AT BEDSIDE. WILL ENDORSE REPORT TO ENVELOPE SEALER OPERATOR.
[2018-09-30] MEDS: risperiDONE 0.25 MG TABLET PO SCH (20:02)
[2018-09-30] MEDS: SENNOSIDES 1 TABLET PO SCH (20:03)
[2018-09-30] MEDS: LORAZEPAM 0.5 MG TABLET PO PRN (23:22)
[2018-10-01] MEDS: PANTOPRAZOLE SODIUM 40 MG TABLET.DR PO SCH (06:05)
--- NOTE | 2018-10-01 06:22 | NUR ---
PT SLEPT 5.30 HOURS. PT SHOWS NO SIGNS OF ACUTE DISTRESS. SITTER AT BEDSIDE. PT PLEASANT WHEN APPROACHED. PRESCRIBED MEDICATION GIVEN AND PT TOLERATED IT WELL. GIVEN ATIVAN AT 2322H BECAUSE PT WAS RESTLESS. PT TOLERATED IT WELL. SAFETY AND COMFORT PROVIDED. WILL ENDORSE ACCORDINGLY TO INCOMING NURSE FOR CONTINUITY OF CARE.
[2018-10-01 08:00] VITALS: BP 169/86
[2018-10-01] MEDS: CLOTRIMAZOLE 1% CREAM 30 GM TUBE TOP SCH ×2 (08:21→17:30)
[2018-10-01] MEDS: Z GUARD REMEDY PASTE 57 GM TUBE TOP SCH ×2 (08:22→20:40)
[2018-10-01] MEDS: FUROSEMIDE 40 MG TABLET PO SCH (08:39)
[2018-10-01] MEDS: LEVETIRACETAM 250 MG TABLET PO SCH ×2 (08:39→17:30)
[2018-10-01] MEDS: BACLOFEN 20 MG TABLET PO SCH ×2 (08:39→20:38)
[2018-10-01] MEDS: AMLODIPINE 10 MG TABLET PO SCH (08:39)
[2018-10-01] MEDS: CLOPIDOGREL 75 MG TABLET PO SCH (08:40)
[2018-10-01] MEDS: DOCUSATE SODIUM 100 MG CAPSULE PO SCH (08:40)
[2018-10-01] MEDS: ASPIRIN EC 81 MG TABLET.DR PO SCH (08:40)
[2018-10-01] MEDS: AMIODARONE HCL 200 MG TABLET PO SCH (08:49)
[2018-10-01] MEDS: CARVEDILOL 6.25 MG TABLET PO SCH ×2 (08:49→17:30)
--- NOTE | 2018-10-01 10:30 | NUR ---
PATIENT LETHARGIC AROUSABLE. PATIENT ALERT AND ORIENTED TO SELF PLACE AND SITUATION, PATIENT WITH DEPRESSED AFFECT, GUARDED. COMPLIANT WITH MEDS. CONTINUE TO MONITOR
[2018-10-01] MEDS: ACETAMINOPHEN 325 MG TABLET PO PRN (10:33)
[2018-10-01 11:00] VITALS: BP 139/72
--- NOTE | 2018-10-01 12:56 | NUR ---
Received a call from Sveta Arias who stated she was the patient's daughter and wanted to know if the patient was being discharged. Informed Sveta that the patient's case management director was either Kelli or Ifrah, both phone numbers were provided to Sveta
[2018-10-01] MEDS: DULOXETINE 60 MG CAPSULE.DR PO SCH ×2 (13:00→15:08)
--- NOTE | 2018-10-01 14:35 | NUR ---
Discharge planning: Design Checker Online Media Buyer spoke to patient to inform her that the PT at [facility] has advised that the pt. go to a SNF because she might be a fall-risk. Patient expressed that she feels strong enough to go home and has caregiving support from her grandson, Joselito Arias who lives with her. Per patient, her PCP is Dr. Sandra Daniels [[facility] [address] [place] [address]; ]. Design Checker Online Media Buyer contacted Joselito, to discuss discharge planning. Joselito expressed that he has lived with the pt. for 2 years, which he has helped provide care for her and would like the pt. to return home when ready. Per Joselito, he does not work and is able to provide full-time care for the patient. However, Joselito also stated that the patient was a fully functional independent adult about 5 weeks ago. SW will relay the information to patient psychiatrist, Dr. Patiño and will continue to collaborate with interdisciplinary team for most appropriate discharge plans.
--- NOTE | 2018-10-01 15:00 | NUR ---
PATIENT REMAINS WITH SELF DESTRUCTIVE BEHAVIOR, NOTED PULLING OUT HER HAIR, PATIENT REDIRECTED FOR EMOTIONAL SUPPORT. REMAINED INTERMITTENTLY SLEEPING AROUSABLE.
[2018-10-01 15:01] VITALS: BP 149/72
--- NOTE | 2018-10-01 16:24 | NUR ---
Discharge Planning: utility worker production met with patient at bedside. Patient was sitting in claire-chair and appeared very lethargic and was not opening her eyes when she spoke. RN came into room to given PRN medication as patient had just had an episode of pulling chunks of her hair out. utility worker production asked patient why she pulled her hair and patient stated "to inflict pain". Patient mood is depressed and affect flat. Patient states she wants to go home, but forensic social worker explained that her safety is of concern as she is self-inflicting pain. Patient agreed she could not go home yet. Patient may need a more structured environment like snf placement. utility worker production then told patient that he daughter, Sveta [[phone]] called and left a voicemail. utility worker production asked if clinical writer could speak with her daughter and patient agreed. utility worker production will follow-up with patient daughter.
--- NOTE | 2018-10-01 19:30 | NUR ---
RECEIVED PATIENT AWAKE IN BED WITH SITTER AT BEDSIDE. NO SIGNS OF ACUTE DISTRESS NOTED. NO COMPLAINTS OF PAIN OR SOB. DAY SHIFT RN REPORTED THAT PATIENT REMAINS WITH SELF DESTRUCTIVE BEHAVIOR. SAFETY MEASURES INITIATED. WILL CONTINUE TO MONITOR.
[2018-10-01 20:00] VITALS: BP 134/70
[2018-10-01] MEDS: risperiDONE 0.25 MG TABLET PO SCH (20:38)
[2018-10-01] MEDS: SENNOSIDES 1 TABLET PO SCH (20:38)
[2018-10-02 03:33] VITALS: BP 131/79
[2018-10-02] MEDS: PANTOPRAZOLE SODIUM 40 MG TABLET.DR PO SCH (06:26)
--- NOTE | 2018-10-02 06:31 | NUR ---
PATIENT WAS RESTLESS MOST OF THE NIGHT. NOTED PATIENT PULLING HER HAIR AND REDIRECTED HER FOR EMOTIONAL SUPPORT. NO SIGNS OF ACUTE DISTRESS. NO COMPLAINTS OF PAIN OR SOB. ALL MEDICATIONS GIVEN ORDERED. REMAINS WITH 1:1 SITTER AT BEDSIDE. SAFETY MEASURES GIVEN.
--- NOTE | 2018-10-02 07:21 | NUR ---
PATIENT RECEIVED SLEEPING IN BED, PATIENT CONTINUES RESTLESS THIS AM, SLEEPING INTERMITTENTLY, NO DISTRESS NOTED. CONTINUE TO MONITOR REMAINS ON CONTACT ISOLATION FOR MRSA NARES, SITTER AT SIDE, REMAINS ON 5250 FOR DTS.
[2018-10-02 09:22] VITALS: BP 127/65
[2018-10-02] MEDS: DOCUSATE SODIUM 100 MG CAPSULE PO SCH (09:27)
[2018-10-02] MEDS: FUROSEMIDE 40 MG TABLET PO SCH (09:27)
[2018-10-02] MEDS: AMIODARONE HCL 200 MG TABLET PO SCH (09:27)
[2018-10-02] MEDS: CLOPIDOGREL 75 MG TABLET PO SCH (09:27)
[2018-10-02] MEDS: ASPIRIN EC 81 MG TABLET.DR PO SCH (09:27)
[2018-10-02] MEDS: AMLODIPINE 10 MG TABLET PO SCH (09:27)
[2018-10-02] MEDS: LEVETIRACETAM 250 MG TABLET PO SCH ×2 (09:27→17:53)
[2018-10-02] MEDS: BACLOFEN 20 MG TABLET PO SCH ×2 (09:27→20:25)
[2018-10-02] MEDS: CARVEDILOL 6.25 MG TABLET PO SCH ×2 (09:27→18:04)
[2018-10-02] MEDS: Z GUARD REMEDY PASTE 57 GM TUBE TOP SCH ×2 (09:37→20:26)
[2018-10-02] MEDS: CLOTRIMAZOLE 1% CREAM 30 GM TUBE TOP SCH ×2 (09:37→17:54)
[2018-10-02 12:30] VITALS: BP 135/77
[2018-10-02] MEDS: DULOXETINE 60 MG CAPSULE.DR PO SCH (13:37)
--- NOTE | 2018-10-02 16:12 | NUR ---
PATIENT WITH SITTER REPORTED SMALL BOWEL MOVEMENT, PATIENT WITH NO BM DOCUMENTED SINCE THURSDAY. WILL PROVIDE PRN FOR CONSTIPATION.
[2018-10-02 16:22] VITALS: BP 146/68
--- NOTE | 2018-10-02 16:30 | NUR ---
PATIENT TRANSFERRED BACK TO MENTAL HEALTH UNIT, PATIENT STABLE FOR TRANSFER BACK TO UNIT, REPORT PROVIDED TO DANIEL GUZMAN LVN
[2018-10-02] MEDS: risperiDONE 0.25 MG TABLET PO SCH (17:53)
[2018-10-02] MEDS: SENNOSIDES 1 TABLET PO SCH (20:24)
[2018-10-02 21:13] VITALS: BP 121/60
[2018-10-03] MEDS: PANTOPRAZOLE SODIUM 40 MG TABLET.DR PO SCH (06:13)
[2018-10-03 07:30] VITALS: BP 121/67
[2018-10-03] MEDS: risperiDONE 0.25 MG TABLET PO SCH ×2 (08:09→17:08)
[2018-10-03] MEDS: CLOPIDOGREL 75 MG TABLET PO SCH (08:10)
[2018-10-03] MEDS: DOCUSATE SODIUM 100 MG CAPSULE PO SCH (08:10)
[2018-10-03] MEDS: ASPIRIN EC 81 MG TABLET.DR PO SCH (08:10)
[2018-10-03] MEDS: AMIODARONE HCL 200 MG TABLET PO SCH (08:10)
[2018-10-03] MEDS: AMLODIPINE 10 MG TABLET PO SCH (08:10)
[2018-10-03] MEDS: LEVETIRACETAM 250 MG TABLET PO SCH ×2 (08:13→17:08)
[2018-10-03] MEDS: CARVEDILOL 6.25 MG TABLET PO SCH ×2 (08:13→17:00)
[2018-10-03] MEDS: BACLOFEN 20 MG TABLET PO SCH ×2 (08:13→20:16)
[2018-10-03] MEDS: CLOTRIMAZOLE 1% CREAM 30 GM TUBE TOP SCH ×2 (08:14→17:00)
[2018-10-03] MEDS: FUROSEMIDE 40 MG TABLET PO SCH (08:49)
[2018-10-03] MEDS: Z GUARD REMEDY PASTE 57 GM TUBE TOP SCH ×2 (08:50→20:17)
[2018-10-03] MEDS: DULOXETINE 60 MG CAPSULE.DR PO SCH (12:11)
[2018-10-03 15:33] VITALS: BP 108/68
[2018-10-03 20:00] VITALS: BP 127/76
[2018-10-03] MEDS: SENNOSIDES 1 TABLET PO SCH (20:16)
[2018-10-03] MEDS: LORAZEPAM 0.5 MG TABLET PO PRN (20:30)
[2018-10-04] MEDS: PANTOPRAZOLE SODIUM 40 MG TABLET.DR PO SCH (06:32)
[2018-10-04 07:30] VITALS: BP 163/86
[2018-10-04] MEDS: DOCUSATE SODIUM 100 MG CAPSULE PO SCH (08:11)
[2018-10-04] MEDS: ASPIRIN EC 81 MG TABLET.DR PO SCH (08:11)
[2018-10-04] MEDS: CLOPIDOGREL 75 MG TABLET PO SCH (08:11)
[2018-10-04] MEDS: risperiDONE 0.25 MG TABLET PO SCH ×2 (08:11→16:53)
[2018-10-04] MEDS: AMLODIPINE 10 MG TABLET PO SCH (08:12)
[2018-10-04] MEDS: AMIODARONE HCL 200 MG TABLET PO SCH (08:12)
[2018-10-04] MEDS: LEVETIRACETAM 250 MG TABLET PO SCH ×2 (08:16→16:53)
[2018-10-04] MEDS: FUROSEMIDE 40 MG TABLET PO SCH (08:16)
[2018-10-04] MEDS: Z GUARD REMEDY PASTE 57 GM TUBE TOP SCH ×2 (08:17→20:36)
[2018-10-04] MEDS: CARVEDILOL 6.25 MG TABLET PO SCH ×2 (08:25→16:53)
[2018-10-04] MEDS: BACLOFEN 20 MG TABLET PO SCH ×2 (09:00→20:37)
[2018-10-04] MEDS: CLOTRIMAZOLE 1% CREAM 30 GM TUBE TOP SCH ×2 (09:55→16:51)
[2018-10-04] MEDS: DULOXETINE 60 MG CAPSULE.DR PO SCH (12:30)
[2018-10-04 15:08] VITALS: BP 137/82
--- NOTE | 2018-10-04 16:55 | NUR ---
Social Service Discharge Planning Note: 3:30pm: IVON chairez was informed this morning by IVON Pereira that patient gave IVON gR consent for humberto to speak with her daughter, Sveta . IVON Chairez contacted Sveta to gather additional information about patient�s history. Sveta stated that she is the pt.�s conservator and can make medical and financial decisions on behalf of the pt. Sveta expressed she no longer wants to be the conservator, as it has caused too many family problems. Sveta stated that she would like her son, Joselito Arias to �take over� as he currently lives with the pt. and is now providing care for the patient. IVON Chairez informed Sveta that if she has conservatorship, she is legally responsible to aid in the decision-making process when it relates to the pt.�s financial or medical needs and cannot simply be transferred over to Joselito. Sveta expressed that she understood and would [facility] via email to IVON Rg as soon as possible. IVON chairez provided Sveta with Ifrah�s work email address. Sveta stated that although her son Joselito mentioned the pt. had a brain infection and shingles, Kinsey understood from a nurse at [place] that the pt. had suffered from a severe ear infection that turned into meningitis. Per Sveta, she does not have medical records of that hospitalization but the pt.�s twin sister, Adeline Downs might. IVON Chairez/U IVON will follow up with Adeline. IVON Rg will await to receive the [facility] paperwork via email.
--- NOTE | 2018-10-04 16:57 | NUR ---
4:30pm: SW pharmacist intern and this MARKETING ENGINEER met with RN Max, and infection control Alon Rodríguez was also present. SW pharmacist intern and MARKETING ENGINEER informed both Max and Alon about the conversation that SW pharmacist intern had had with patient's daughter Sveta earlier today (see previous SS note) and how Sveta had informed SW pharmacist intern that Sveta was told by patient's nurse during patient's recent hospitalization at [facility] that patient had a severe ear infection that had turned into Meningitis.
--- NOTE | 2018-10-04 18:20 | NUR ---
patient is alert and oriented x2. Patient in claire chair and shows self care deficit. patient had a bowel movement in the activities room and thought it was the toilet. Patient is confused and needs rediercting and reorientation through out the day. Patient shows a deficit in ADLs. patient denies any pain or discomfort. Patient is compliant with medication administration and treatment. Patient refuses to wear mask when out of the room for MRSA of nares contact isoloation. Will continue to monitor and endorse plan o care to overnight houseperson.
--- NOTE | 2018-10-04 20:00 | NUR ---
Received patient sitting in gerichair. In no acute distress. No anxiety noted at this time. Affect flat. VS WNL. Denies any pain/discomfort/SI/HI at this time. Will continue to monitor.
[2018-10-04 20:03] VITALS: BP 173/73
[2018-10-04] MEDS: SENNOSIDES 1 TABLET PO SCH (20:36)
[2018-10-04] MEDS: LORAZEPAM 0.5 MG TABLET PO PRN (20:37)
[2018-10-05] MEDS: TEMAZEPAM 7.5 MG CAPSULE PO PRN (01:17)
[2018-10-05] MEDS: LORAZEPAM 0.5 MG TABLET PO PRN (02:46)
[2018-10-05] MEDS: PANTOPRAZOLE SODIUM 40 MG TABLET.DR PO SCH (06:05)
[2018-10-05 07:30] VITALS: BP 97/64
[2018-10-05 07:34] LABS: BASOPHILS % (AUTO) 0.4 % (0.0-2.0); EOSINOPHILS # (AUTO) 0.1 K/uL (0.0-0.7); EOSINOPHILS % (AUTO) 1.2 % (0.0-7.0); HEMATOCRIT 37.8 % (31.2-41.9); HEMOGLOBIN 12.7 g/dL (10.9-14.3); LYMPHOCYTES # (AUTO) 1.3 K/uL (20.0-40.0); LYMPHOCYTES % (AUTO) 20.3 % (20.5-51.5); MEAN CORPUSCULAR HGB CONC 34 g/dL (32.3-35.6); MEAN CORPUSCULAR VOLUME 89.4 fL (75.5-95.3); MONOCYTES # (AUTO) 0.6 K/uL (2.0-10.0); MONOCYTES % (AUTO) 9.9 % (0.0-11.0); NEUTROPHILS # (AUTO) 4.4 K/uL (1.8-8.9); NEUTROPHILS % (AUTO) 68.2 % (38.5-71.5); PLATELET COUNT (AUTO) 220 K/uL (179-408); RED BLOOD CELL COUNT(AUTO) 4.23 MIL/uL (3.63-4.92); WHITE BLOOD COUNT (AUTO) 6.5 K/uL (3.8-11.8)
[2018-10-05 07:44] LABS: CREATININE 1.3 mg/dL (0.6-1.3); POTASSIUM 3.4 mmol/L (3.5-5.1)
[2018-10-05] MEDS: CLOPIDOGREL 75 MG TABLET PO SCH (09:31)
[2018-10-05] MEDS: ASPIRIN EC 81 MG TABLET.DR PO SCH (09:31)
[2018-10-05] MEDS: DOCUSATE SODIUM 100 MG CAPSULE PO SCH (09:31)
[2018-10-05] MEDS: risperiDONE 0.25 MG TABLET PO SCH ×2 (09:31→13:03)
[2018-10-05] MEDS: AMLODIPINE 10 MG TABLET PO SCH (09:45)
[2018-10-05] MEDS: AMIODARONE HCL 200 MG TABLET PO SCH (09:45)
[2018-10-05] MEDS: Z GUARD REMEDY PASTE 57 GM TUBE TOP SCH ×2 (09:46→20:42)
[2018-10-05] MEDS: CLOTRIMAZOLE 1% CREAM 30 GM TUBE TOP SCH ×2 (09:47→17:49)
[2018-10-05] MEDS: FUROSEMIDE 40 MG TABLET PO SCH (09:47)
[2018-10-05] MEDS: BACLOFEN 20 MG TABLET PO SCH ×2 (09:47→20:41)
[2018-10-05] MEDS: CARVEDILOL 6.25 MG TABLET PO SCH ×2 (09:48→17:48)
[2018-10-05] MEDS: LEVETIRACETAM 250 MG TABLET PO SCH ×2 (09:48→17:48)
[2018-10-05 10:04] VITALS: BP 135/65
[2018-10-05] MEDS: DULOXETINE 60 MG CAPSULE.DR PO SCH (13:03)
[2018-10-05] MEDS ORDERED: POTASSIUM CHLORIDE 20 MEQ TAB.PRT.SR PO ONE (14:00)
--- NOTE | 2018-10-05 15:28 | NUR ---
Discharge planning: nephrology social worker faxed home health referral to [facility] [ ] security coordinator, Violet Hinkle. duralumin metalworker awaiting response from intake department. . duralumin metalworker facilitated conversation with patient about attending an IOP once she is discharged. Patient was receptive and interested in program. Patient has agreed to go. duralumin metalworker faxed referral to [facility] [ph: ; fax: ]. duralumin metalworker awaiting response from intake department. Addendum: 10/05/18 at 1659 by MOHINDER DEL VALLE duralumin metalworker received call back from Ricardo, community services coordinator, for A [facility] [ ] stating that patient has been accepted and will begin receiving services on , 10/05/2018.
[2018-10-05 16:50] VITALS: BP 155/99
[2018-10-05] MEDS ORDERED: risperiDONE 0.25 MG TABLET PO SCH (17:00)
[2018-10-05] MEDS: risperiDONE 0.5 MG TABLET PO SCH (17:45)
[2018-10-05 20:27] VITALS: BP 112/71
[2018-10-05] MEDS: SENNOSIDES 1 TABLET PO SCH (20:41)
--- NOTE | 2018-10-05 21:41 | NUR ---
Received pt sitting in claire chair, in the hallway. AAO x2-3. No acute distress noted. No c/o pain or discomfort. Pt stated that she is excited to go home tomorrow. Plan to d/c and live with family. Due meds given as ordered. Denies S/I. Compliant. Safety measures maintained. Will continue to monitor.
[2018-10-06] MEDS: PANTOPRAZOLE SODIUM 40 MG TABLET.DR PO SCH (06:14)
[2018-10-06 08:02] VITALS: BP 113/74
[2018-10-06] MEDS: risperiDONE 0.5 MG TABLET PO SCH (09:12)
[2018-10-06] MEDS: CLOPIDOGREL 75 MG TABLET PO SCH (09:12)
[2018-10-06] MEDS: DOCUSATE SODIUM 100 MG CAPSULE PO SCH (09:12)
[2018-10-06] MEDS: ASPIRIN EC 81 MG TABLET.DR PO SCH (09:12)
[2018-10-06] MEDS: AMIODARONE HCL 200 MG TABLET PO SCH (09:13)
[2018-10-06] MEDS: FUROSEMIDE 40 MG TABLET PO SCH (09:18)
[2018-10-06] MEDS: AMLODIPINE 10 MG TABLET PO SCH (09:18)
[2018-10-06] MEDS: BACLOFEN 20 MG TABLET PO SCH (09:18)
[2018-10-06 09:19] VITALS: BP 113/74
[2018-10-06] MEDS: CARVEDILOL 6.25 MG TABLET PO SCH (09:19)
[2018-10-06] MEDS: LEVETIRACETAM 250 MG TABLET PO SCH (09:25)
[2018-10-06] MEDS: Z GUARD REMEDY PASTE 57 GM TUBE TOP SCH (10:16)
--- NOTE | 2018-10-06 10:49 | NUR ---
DISCHARGE NOTE: Patient will be discharged back to her home [[address] [place] [address]], with her grandson, Joselito Arias [ ] at 12:00pm. Patient is alert and oriented x3, denies any SI/HI, and is able to plan for self-care. Patient was briefed on discharge and aware and agreeable with plan. Patient will follow-up with primary care physician, Dr. Sandra Daniels [[address] [place] [address]; ] on Friday, October 12, 2018 at 2:00pm.Patient currently has no outpatient psychiatrist so she has been provided with a list of Medicare-accepting psychiatrists in the [place], [place]. If patient is in need of psychiatric follow-up sooner, she has been provided with a referral to [facility] [[address] [place] [address]; ] where patient can walk-in for appointment Thursday thru Thursday anytime between 8:00pm-5:00pm. Patient has been accepted to A [facility] [[address] [place] [id number]; ] and will receive home health services including nurse evaluation, physical therapy, medication management, and social work consult. Per Ricardo marketing outreach coordinator, patient will begin receiving services on September. fabric worker foreman has also provided patient with an Intensive Outpatient Program, Tomi Sheets, and is currently waiting for admissions to call back with start date. fabric worker foreman will follow-up with start date. fabric worker foreman has also provided patient with outpatient mental health resources [facility] [[address] [place] [address]; ], [facility] [ ], and National Suicide Prevention Lifeline [ ]. Addendum: 10/06/18 at 1503 by MOHINDER DEL VALLE fabric worker foreman called and spoke with aboriginal education worker coordinator, Kelly, at [facility] [[phone]] who stated that patient was not accepted to IOP due to patient "geropsych status". per Kelly, she will provide this jingle writer with referrals to IOPs that accept geriatric patients.
[2018-10-06] MEDS: CLOTRIMAZOLE 1% CREAM 30 GM TUBE TOP SCH (11:22)
--- NOTE | 2018-10-06 13:50 | NUR ---
1230 DISCHARGE INSTRUCTION GIVEN TO TH SON REGARDING MEDICATIONS TO CONTINUE AT HOME . PRESCRIPTION GIVEN BOTH PSYCH AND MEDICAL PATIENT WENT HOME STABLE CONDITION, DENIES SI/ HI. NO DELUSION./ NO HALLUCINATION NOTED.
--- NOTE | 2018-10-07 15:57 | NUR ---
APS Report: Patient discharged on 10/06/2018 with home health. animal nursery worker received phone call from A [facility] [[phone]] stating that patient grandson, Joselito Arias [[phone]] refused home health service despite patient wanting to receive the service. Due to this information, social director made an APS report for suspected neglect to [facility] APS social director, Luci. Written report was faxed [[phone]] to agency. Successful fax return was received and placed in patient chart.
== END 2018-10-06 13:00 | disposition home health service (06) | DRG 885 ==
LOC: GPSOV3 16:11 → GPS 10-02 16:26
PROVIDERS: ADMIT Psychiatry & Neurology Psychosomatic Medicine; ATTEND Internal Medicine
DX: F33.2 Major depressive disorder, recurrent severe without psychotic features (principal); I11.0 Hypertensive heart disease with heart failure; I50.42 Chronic combined systolic (congestive) and diastolic (congestive) heart failure; Z68.41 Body mass index [BMI] 40.0-44.9, adult; R45.851 Suicidal ideations; G89.29 Other chronic pain; G40.909 Epilepsy, unspecified, not intractable, without status epilepticus; I73.9 Peripheral vascular disease, unspecified; I25.10 Atherosclerotic heart disease of native coronary artery without angina pectoris; F09 Unspecified mental disorder due to known physiological condition; I44.7 Left bundle-branch block, unspecified; E03.9 Hypothyroidism, unspecified; E87.6 Hypokalemia; E66.01 Morbid (severe) obesity due to excess calories; Z71.3 Dietary counseling and surveillance; I48.91 Unspecified atrial fibrillation; Z79.899 Other long term (current) drug therapy; Z79.02 Long term (current) use of antithrombotics/antiplatelets; Z96.29 Presence of other otological and audiological implants; Z22.322 Carrier or suspected carrier of Methicillin resistant Staphylococcus aureus; Z88.2 Allergy status to sulfonamides
CPT/HCPCS: 36415; 85025; 94640; 97110; 97116; 97165; 97530; 97535; J3590